=== PATIENT | female | born 1950 | race Hispanic/Latino ===

== ENCOUNTER 2024-04-05 10:46 | Emergency (ER) | payer MEDICARE ==
[~2024-04-05] VITALS: Ht 160 cm; Wt 58.1 kg
[2024-04-05 11:34] LABS: BASOPHILS # (AUTO) 0.03 K/uL (0.00-0.20); BASOPHILS % (AUTO) 0.5 % (0.0-5.0); EOSINOPHILS # (AUTO) 0.21 K/uL (0.00-0.70); EOSINOPHILS % (AUTO) 3.2 % (0.0-8.0); HEMATOCRIT 37.6 % (36-48); IMMATURE GRANULOCYTE ABSOLUTE 0.02 K/uL (0-1); LYMPHOCYTES # (AUTO) 1.7 K/uL (1.0-4.8); LYMPHOCYTES % (AUTO) 26.4 % (21.0-51.0); MEAN CORPUSCULAR HEMOGLOBIN 32.4 pg (27.0-33.0); MEAN CORPUSCULAR HGB CONC 35.6 g/dL (32.0-36.0); MONOCYTES % (AUTO) 15.1 % (3.0-13.0); NEUTROPHILS # (AUTO) 3.6 K/uL (1.8-7.7); NEUTROPHILS % (AUTO) 54.5 % (40.0-77.0); PLATELET COUNT (AUTO) 208 K/uL (130-400); RED BLOOD CELL COUNT(AUTO) 4.13 MIL/uL (4.00-5.50); RED CELL DISTRIBUTION WIDTH 13.9 % (11.0-15.5); WHITE BLOOD COUNT (AUTO) 6.6 K/uL (4.8-10.8)
[2024-04-05 11:43] LABS: CREATININE 1.2 mg/dL (0.5-1.0); POTASSIUM 5.3 mmol/L (3.5-5.1)
[2024-04-05 11:45] LABS: INR 1.02 (0.85-1.15)
[2024-04-05 11:46] LABS: PARTIAL THROMBOPLASTIN TIME 28.3 SEC (26.3-35.5)
[2024-04-05] MEDS: DEXTROSE 50%-WATER 50 ML DISP.SYRIN IV ONE (13:15)
[2024-04-05] MEDS: KAYEXALATE 15GM/60ML PO SCH (13:15)
[2024-04-05] MEDS: LACTULOSE 20 GM/30 ML UDCUP PO ONE (13:15)
[2024-04-05] MEDS: 0.9%NACL 1000ML 1,000 ML IV ONE (13:15)
[2024-04-05] MEDS: INSULIN humuLIN R 100 UNIT/ML 3ML IV ONE (13:16)
[2024-04-05] MEDS: DEXTROSE 50%-WATER 25 GM/50 ML VIAL IV ONE (13:17)
[2024-04-05] MEDS: MAGNESIUM HYDROXIDE 30 ML/UDCUP PO ONE (14:30)
[2024-04-05] MEDS ORDERED: DOCU-116 PO (17:00)
[2024-04-05 17:12] VITALS: BP 121/68; PULSE 64; RESP 18; O2SAT 99
[2024-04-10] MEDS ORDERED: LACT10SO9 PO (12:53)
== END 2024-04-05 17:10 | disposition home or self-care (01) ==
LOC: EDH 10:46
DX: K59.00 Constipation, unspecified (principal); I10 Essential (primary) hypertension; E03.9 Hypothyroidism, unspecified; F31.9 Bipolar disorder, unspecified; Z98.890 Other specified postprocedural states
CPT/HCPCS: 99285; 74176; 96365; 96375; 80048; 85025; 85610; 85730; 83605; 36415; 93005; J1815; J7030; J7070; 96361; 96374

== ENCOUNTER 2024-04-17 19:29 | Emergency (ER) | payer MEDICARE ==
[~2024-04-17] VITALS: Ht 160 cm; Wt 61.2 kg
[~2024-04-17 19:29] MED LIST: DOCU-116 PO; LACT10SO9 PO
[2024-04-17 20:14] VITALS: TEMP 98.2
[2024-04-17 20:16] LABS: BASOPHILS # (AUTO) 0.04 K/uL (0.00-0.20); BASOPHILS % (AUTO) 0.5 % (0.0-5.0); EOSINOPHILS % (AUTO) 2.6 % (0.0-8.0); HEMATOCRIT 38.6 % (36-48); IMMATURE GRANULOCYTE ABSOLUTE 0.02 K/uL (0-1); LYMPHOCYTES # (AUTO) 2.3 K/uL (1.0-4.8); LYMPHOCYTES % (AUTO) 29.6 % (21.0-51.0); MEAN CORPUSCULAR HEMOGLOBIN 32.1 pg (27.0-33.0); MEAN CORPUSCULAR VOLUME 91.7 fL (79-99); MONOCYTES # (AUTO) 1.1 K/uL (0.1-1.0); MONOCYTES % (AUTO) 13.6 % (3.0-13.0); NEUTROPHILS # (AUTO) 4.2 K/uL (1.8-7.7); NEUTROPHILS % (AUTO) 53.4 % (40.0-77.0); PLATELET COUNT (AUTO) 190 K/uL (130-400); RED BLOOD CELL COUNT(AUTO) 4.21 MIL/uL (4.00-5.50); WHITE BLOOD COUNT (AUTO) 7.8 K/uL (4.8-10.8)
[2024-04-17 20:24] LABS: INR 0.97 (0.85-1.15); PROTHROMBIN TIME 10.5 SEC (9.6-11.6)
[2024-04-17 20:25] LABS: PARTIAL THROMBOPLASTIN TIME 28.2 SEC (26.3-35.5)
[2024-04-17 20:31] LABS: CREATININE 1.1 mg/dL (0.5-1.0); POTASSIUM 4.7 mmol/L (3.5-5.1)
[2024-04-17 20:46] LABS: APPEARANCE,URINE CLOUDY (CLEAR); BILIRUBIN,URINE NEGATIVE (NEGATIVE); COLOR,URINE YELLOW (YELLOW); GLUCOSE, URINE (UA) NEGATIVE (NEGATIVE); KETONES,URINE NEGATIVE (NEGATIVE); LEUKOCYTE ESTERASE ,URINE 500 Leu/uL (NEGATIVE); NITRATE,URINE 1+ (NEGATIVE); PH,URINE 6.5 (5.0-8.0); PROTEIN,URINE 20 mg/dL (NEGATIVE); UROBILINOGEN,URINE 0.2 mg/dL (0.2-1.0)
[2024-04-17] MEDS: 0.9%NACL 1000ML 1,000 ML IV ONE (20:47)
[2024-04-17 20:51] LABS: ADD UA MICROSCOPIC YES
[2024-04-17 20:52] LABS: B-TYPE NATRIURETIC PEPTIDE 35 pg/mL (0-100)
[2024-04-17 20:55] LABS: AMPHET/METH SCREEN,URINE NEGATIVE (NEGATIVE); BARBITURATE SCREEN, URINE NEGATIVE (NEGATIVE); BENZODIAZEPINES SCREEN,URINE NEGATIVE (NEGATIVE); CANNABINOID SCREEN,URINE NEGATIVE (NEGATIVE); COCAINE SCREEN,URINE NEGATIVE (NEGATIVE); OPIATE SCREEN,URINE NEGATIVE (NEGATIVE); PHENCYCLIDINE SCREEN,URINE NEGATIVE (NEGATIVE)
[2024-04-17 20:57] LABS: BACTERIA,URINE RARE /HPF (None Seen); SQUAMOUS EPITHELIAL CELL,UR FEW /HPF (0-2); TRANSITIONAL EPI CELLS,URINE FEW /HPF (None Seen); WBC CLUMP FEW /HPF (0-1); WBC,URINE TNTC /HPF (0-1)
[2024-04-17] MEDS: cefTRIAXone 1G VIAL IVPB ONE (23:44)
[2024-04-18 00:41] VITALS: BP 145/66; PULSE 75; RESP 18; O2SAT 98
== END 2024-04-18 01:47 | disposition short-term general hospital (02) ==
LOC: EDH 19:29
DX: N39.0 Urinary tract infection, site not specified (principal); R47.1 Dysarthria and anarthria; E03.9 Hypothyroidism, unspecified; F03.90 Unspecified dementia, unspecified severity, without behavioral disturbance, psychotic disturbance, mood disturbance, and anxiety; I10 Essential (primary) hypertension; F31.9 Bipolar disorder, unspecified; Z79.899 Other long term (current) drug therapy; Z90.710 Acquired absence of both cervix and uterus; Z98.890 Other specified postprocedural states
CPT/HCPCS: 99285; 96365; 96361; 70450; 71045; 82550; 83721; 84484; 80048; 83880; 80305; 85025; 85610; 85730; 87086 ×2; 87186; 36415; 93005; 81001; J7030; J0696

== ENCOUNTER 2025-08-15 18:25 | Emergency (ER) | payer MEDICARE ==
[~2025-08-15] VITALS: Ht 160 cm; Wt 54.4 kg
[~2025-08-15 18:25] MED LIST changes: +ACET-2027 PO; +ASPI-1197 PO; +ATEN50TA PO; +ATOR20TA65 PO; +DIVA-111 PO; -DOCU-116 PO; +DULO60CA64 PO; +GABA300C PO; -LACT10SO9 PO; +LEVO112C5 PO; +MEMA5TAB16 PO; +RISP0.5T61 PO
--- NOTE | 2025-08-15 18:34 | ERN ---
ED Note History of Present Illness Stated Complaint: HEMATURIA, CONSTIPATION, ABDOMINAL PAIN Chief Complaint: Multiple Complaints Time Seen by MD: 18:30 Dictation: IN HIS A 74-YEAR-OLD FEMALE COMING IN TO THE HOSPITAL VIA EMS FROM A LOCAL RESIDENTIAL. SHE IS COMPLAINING OF HAVING HEMATURIA WITH SUPRAPUBIC AND LEFT LOWER QUADRANT PAIN TENDERNESS FOR THE LAST 4-5 DAYS. SHE ALSO STATES SHE HAS HAD NO BOWEL MOVEMENT IN THE SAME AMOUNT OF TIME. SHE HAD DENIES VOMITING, SHE IS NAUSEATED. NO FEVER NO CHILLS. Allergies: Coded Allergies: tetanus toxoid, adsorbed (Unverified Allergy, Unknown, 08/23/24) Home Meds Reported Medications Gabapentin (Neurontin) 300 Mg Capsule, 1 CAP PO DAILY for 30 Days, #90 CAP 0 Refills 03/28/25 Divalproex Sodium (Divalproex Sodium) 250 Mg Tablet.dr, 3 TAB PO BID for 30 Days, #60 TAB 0 Refills 03/28/25 Aspirin (Aspirin) 81 Mg Tab.chew, 1 TAB PO DAILY for 30 Days, #30 TAB 0 Refills 03/28/25 Acetaminophen (Arthritis Pain Reliever) 650 Mg Tablet.er, 650 MG PO DAILYLUNCH, TAB 03/28/25 Memantine HCl (Memantine HCl) 5 Mg Tablet, 5 MG PO HS, TAB 08/23/24 Levothyroxine Sodium (Levothyroxine) 112 Mcg Capsule, 1 CAP PO DAILY for 30 Days, #30 CAP 0 Refills 08/23/24 Duloxetine HCl (Duloxetine HCl) 60 Mg Capsule.dr, 60 MG PO BID, CAP 08/23/24 Atorvastatin Calcium (Atorvastatin Calcium) 20 Mg Tablet, 1 TAB PO HS for 30 Days, #30 TAB 0 Refills 08/23/24 Atenolol (Atenolol) 50 Mg Tablet, 50 MG PO BID, TAB 08/23/24 Risperidone (Risperdal) 0.5 Mg Tablet, 1 TAB PO BID for 30 Days, #60 TAB 0 Refills 08/23/24 Past Medical History Past Medical History: Bipolar, Dementia, Hypertension, Hypothyroid Surgical History: Unknown History: Not Applicable RN Note Reviewed/Agreed w/PFSH: Yes Review of System Dictation CONSTITUTIONAL: NEGATIVE EXCEPT FOR HPI HEAD/FACE: NEGATIVE EXCEPT FOR HPI EENT: NEGATIVE EXCEPT FOR HPI RESPIRATORY: NEGATIVE EXCEPT FOR HPI GASTROINTESTINAL/ABDOMINAL: NEGATIVE EXCEPT FOR HPI LOWER PELVIC AND ABDOMINAL PAIN GENITOURINARY: NEGATIVE EXCEPT FOR HPI HEMATURIA MUSCULOSKELETAL: NEGATIVE EXCEPT FOR HPI INTEGUMENTARY: NEGATIVE EXCEPT FOR HPI NEUROLOGICAL/PSYCH: NEGATIVE EXCEPT FOR HPI HEMATOLOGIC/LYMPHATIC: NEGATIVE EXCEPT FOR HPI ALL SYSTEMS NEGATIVE, EXCEPT NOTED ABOVE. 13 POINT REVIEW OF SYSTEMS ASSESSED AND ALL NEGATIVE EXCEPT FOR ABOVE. Initial Vital Sign VS Vital Signs Date Time Temp Pulse Resp B/P (MAP) Pulse Ox O2 Delivery O2 Flow Rate FiO2 08/15/25 18:27 98.4 72 12 109/75 97 Room Air 0 08/15/25 19:00 21 Physical Exam Dictation VITAL SIGNS REVIEWED GENERAL APPEARANCE: ALERT, ORIENTED X TWO. VERY DEBILITATED. HEAD AND FACE: NON-TRAUMATIC. EYES: PERRL, PINK CONJUNCTIVAS, EYELID NO TRAUMA, ANTERIOR CHAMBER WITH ARCUS SENILIS. EARS: PINNAS INTACT AND NO SIGNS OF TRAUMA OR ERYTHEMA EAR CANALS CLEAR AND NO DISCHARGE TM NO ERYTHEMA NOSE: NO DISCHARGE, NO BLEEDING. OROPHARYNX: MOUTH NORMAL, TONGUE PINK, PHARYNX CLEAR,NO ERYTHEMA, TONSILS NO EXUDATES, NO ABSCESSES NOTED, MUCOUS MEMBRANE MOIST NECK: SUPPLE, NON-TENDER, NO THYROMEGALY, NO MASSES, NO JVD, NO BRUITS BREAST:DEFERRED CHEST:NO TENDERNESS, NO CREPITUS, NO PARADOXICAL MOVEMENT, NO RETRACTIONS LUNGS:CLEAR, WELL-VENTILATED, SYMMETRIC, NO RALES, NO WHEEZING, NO RHONCHI, NO STRIDOR, GOOD BREATH SOUNDS BILATERALLY HEART: REGULAR RATE, REGULAR RHYTHM, NO MURMUR, NO GALLOPS VASCULAR: NO PERIPHERAL EDEMA, ABDOMEN: SOFT, POSITIVE BOWEL SOUNDS, NONDISTENDED, NO GUARDING, MILD SUPRAPUBIC AND LEFT LOWER QUADRANT TENDERNESS PALPATION RECTAL: DEFERRED GENITAL: DEFERRED NEUROLOGICAL: NORMAL SPEECH, MOTOR FUNCTION INTACT, SENSORY FUNCTION INTACT MUSCULOSKELETAL: NECK NONTENDER, FULL RANGE OF MOTION, BACK NONTENDER, FULL RANGE OF MOTION, EXTREMITIES: NONTENDER, FULL RANGE OF MOTION SKIN: COLOR PINK, DRY, NO TURGOR, NO RASH, NO LACERATIONS, NO ABRASIONS, NO CONTUSIONS. LYMPHATIC: DEFERRED Results (Laboratory/Radiology) Laboratory/Radiology Laboratory Tests Test 08/15/25 18:58 08/15/25 19:30 White Blood Count 7.0 K/uL (4.8-10.8) Red Blood Count 3.80 MIL/uL (4.00-5.50) L Hemoglobin 12.5 g/dL (12.0-16.0) Hematocrit 37.0 % (36-48) Mean Corpuscular Volume 97.4 fL (79-99) Mean Corpuscular Hemoglobin 32.9 pg (27.0-33.0) Mean Corpuscular Hemoglobin Concent 33.8 g/dL (32.0-36.0) Red Cell Distribution Width 16.0 % (11.0-15.5) H Platelet Count 229 K/uL (130-400) Mean Platelet Volume 11.9 fL (7.5-10.5) H Immature Granulocyte % (Auto) 0.3 % (0-1) Neutrophils (%) (Auto) 43.1 % (40.0-77.0) Lymphocytes (%) (Auto) 37.8 % (21.0-51.0) Monocytes (%) (Auto) 15.5 % (3.0-13.0) H Eosinophils (%) (Auto) 3.0 % (0.0-8.0) Basophils (%) (Auto) 0.3 % (0.0-5.0) Neutrophils # (Auto) 3.0 K/uL (1.8-7.7) Lymphocytes # (Auto) 2.6 K/uL (1.0-4.8) Monocytes # (Auto) 1.1 K/uL (0.1-1.0) H Eosinophils # (Auto) 0.21 K/uL (0.00-0.70) Basophils # (Auto) 0.02 K/uL (0.00-0.20) Absolute Immature Granulocyte (auto 0.02 K/uL (0-1) Nucleated Red Blood Cells 0.0 % (0.0-0.19) White Cell Morphology Comment See comments Sodium Level 137 mmol/L (136-145) Potassium Level 4.5 mmol/L (3.5-5.1) Chloride Level 103 mmol/L (101-111) Carbon Dioxide Level 26 mmol/L (21-32) Blood Urea Nitrogen 22 mg/dL (7-18) H Creatinine 0.9 mg/dL (0.5-1.0) Glomerular Filtration Rate Calc 66 mL/min (>90) Random Glucose 93 mg/dL (70-105) Total Calcium 9.1 mg/dL (8.5-10.1) Troponin I High Sensitivity 5 ng/L (4-50) Lipase 24 U/L (16-77) Urine Color YELLOW (YELLOW) Urine Appearance CLOUDY (CLEAR) H Urine pH 6.0 (5.0-8.0) Urine Specific [place] 1.017 (1.001-1.031) Urine Protein NEGATIVE mg/dL (NEGATIVE) Urine Glucose (UA) NEGATIVE mg/dL (NEGATIVE) Urine Ketones NEGATIVE mg/dL (NEGATIVE) Urine Occult Blood SMALL (NEGATIVE) H Urine Nitrate NEGATIVE (NEGATIVE) Urine Bilirubin NEGATIVE mg/dL (NEGATIVE) Urine Urobilinogen 0.2 mg/dL (0.2-1.0) Urine Leukocyte Esterase 500 Mj/uL (NEGATIVE) H Urine RBC 11-25 /HPF (0-1) H Urine WBC 51-100 /HPF (0-1) H Urine Squamous Epithelial Cells RARE /HPF (0-2) Urine Other Crystals (Auto) 1 /HPF (None Seen) Urine Bacteria RARE /HPF (None Seen) Urine Yeast RARE /HPF (None Seen) FINDINGS: LUNG BASES: Reticular opacities in both lower lobes with focal bronchiectasis in the left lower lobe. No pleural effusions are seen. Bilateral breast implants in situ incompletely imaged. LIVER: Unremarkable. GALLBLADDER AND BILE DUCTS: The gallbladder appears within normal limits. No radioopaque gallstones are seen. No biliary ductal dilatation is evident. PANCREAS: Unremarkable. SPLEEN: Unremarkable. ADRENAL GLANDS: Unremarkable. KIDNEYS, URETERS, AND BLADDER: The kidneys appear within normal limits. There is no hydronephrosis or hydroureter. No urinary calculi are seen. STOMACH AND BOWEL: Small hiatus hernia. Unremarkable appearance of the stomach and bowel. No evidence of bowel obstruction. No evidence suggesting enteritis or colitis. APPENDIX: No evidence of acute appendicitis on CT examination. PERITONEUM: No free fluid. No free air. LYMPH NODES: No lymphadenopathy is evident. REPRODUCTIVE: The uterus is surgically absent. Unremarkable as visualized otherwise. VASCULATURE: Atheromatous calcifications in the aorta without evidence of aneurysm. BONES: Multilevel mild degenerative changes in the spine. Mild lumbar levoscoliosis. No aggressive appearing osseous lesion. No acute osseous pathology evident. IMPRESSION: No imaging evidence of acute intra-abdominal or pelvic process. Uterus surgically absent. /[facility] Reviewed?: Yes EKG Comment: 1851/EKG SINUS RHYTHM/HEART RATE 67/LEFT ATRIAL ENLARGEMENT/INCOMPLETE RIGHT BUNDLE BRANCH BLOCK ED Course ED Course Orders Procedure Category Date Status Time Cbc With Differential LAB 08/15/25 Complete 18:31 Troponin I High LAB 08/15/25 Complete Sensitivity 18:31 Urinalysis Profile LAB 08/15/25 Complete 18:31 Ct Abdomen/Pelvis CT 08/15/25 Resulted W/Contrast 18:31 12 Lead Ekg Tracing- EKG 08/15/25 Logged Technical 18:31 0.9%Nacl 1000ml (Ns PHA 08/15/25 Complete 1000ml) 19:00 Lipase LAB 08/15/25 Complete 18:31 Basic Metabolic Panel LAB 08/15/25 Complete 18:31 Iohexol (Omnipaque) PHA 08/15/25 Complete 19:39 Culture Urine SREE 08/15/25 In Process 20:15 Amox/Clav 875/125mg PHA 08/15/25 Verified Tab (Augmentin 875-1 21:00 Current Medications Medications (Trade) Dose Ordered Sig/Abdoulaye Route PRN Reason Start Time Stop Time Status Last Admin Dose Admin Iohexol (Omnipaque) 75 ml STK-MED ONCE IV 08/15/25 19:39 08/15/25 19:39 DC Sodium Chloride 1,000 ml @ 0 mls/hr ONCE ONCE IV 08/15/25 19:00 08/15/25 19:01 DC 08/15/25 19:36 Vital Signs Date Time Temp Pulse Resp B/P (MAP) Pulse Ox O2 Delivery O2 Flow Rate FiO2 08/15/25 19:00 98.4 72 14 109/75 97 Room Air* 0 21 08/15/25 18:27 98.4 72 12 109/75 97 Room Air 0 2100/SPOKE TO PATIENT AT LENGTH REGARDING CLINICAL FINDINGS. ONLY SIGNIFICANT FINDINGS ACUTE URINARY TRACT INFECTION. NO PAIN AT THIS TIME. PATIENT GIVEN AUGMENTIN AND TOLD TO SEE HER DOCTOR HEART Score Response (Comments) Value EKG: Repolarization changes 1 Age: > 65yrs (+2) 2 Risk Factors: 1-2 risk factors (+1) 1 Initial Troponin: Normal limit (0) 0 Total 4 Medical Decision Making MDM MDM: DIFFERENTIAL DIAGNOSIS: ACS/AMI/ELECTROLYTE IMBALANCE/DEHYDRATION/UTI/IMAGING RATIONALE: TESTS CONSIDERED AND ORDERED SECONDARY TO SHARED DECISION MAKING INCLUDE: LABS/RADIOLOGY/EKG PREVIOUS OUTSIDE RECORDS REVIEWED: OLD ER VISITS. RISK OF COMPLICATION AND/OR MORBIDITY OR MORTALITY OF PATIENT MANAGEMENT: NONE MEDICATIONS-PER MEDICATION RECONCILIATION NEED FOR HOSPITALIZATION: PATIENT DOES NOT MEET CRITERIA FOR HOSPITALIZATION. NONE NEED FOR EMERGENCY MAJOR/MINOR SURGERY: NO THERE ARE NO SOCIAL CONCERNS WITH THIS PATIENT. AUGMENTIN PRESCRIPTIONS WILL INCLUDE SYMPTOMATIC CARE PATIENT'S PRIOR EXTERNAL MEDICAL RECORDS FROM OTHER ER VISITS WERE REVIEWED BY ME INDICATED. PRIOR TESTING AND RESULTS FROM PREVIOUS VISITS WERE REVIEWED. PRIOR TESTS WERE TAKEN INTO ACCOUNT WITH MEDICAL DECISION MAKING AND RESOURCE UTILIZATION, INDEPENDENT HISTORIAN/HISTORIANS WERE USED TO OBTAIN COMPLETE MEDICAL HISTORY. I INDEPENDENTLY INTERPRETED THE TEST THAT WERE PERFORMED, RESULTS WERE REVIEWED BY ME AND CONSIDERED FINDINGS ON RADIOLOGY IF ORDERED. MEDICAL MANAGEMENT AND EXAMINATION INTERPRETATION DISCUSSIONS WERE HAD BY ME WITH OTHER QUALIFIED HEALTHCARE PROFESSIONALS INDICATED FOR THE PATIENT'S CARE. DX & DISP Disposition: Discharge Departure Impression: Primary Impression: Acute cystitis Additional Impression: Dehydration Condition: Stable Scripts Amoxicillin/Potassium Clav (Amox Tr-K Clv 875-125 mg Tab) 875 Mg-125 Mg Tablet 1 EACH PO BID for 5 Days, #10 TAB 0 Refills Prov: CATHY LOZADA 08/15/25 Additional Instructions: FOLLOW-UP WITH PRIMARY CARE PROVIDER IN 1 TO 2 DAYS. TAKE MEDICATIONS DIRECTED HERE IN THE EMERGENCY ROOM. OKAY TO CONTINUE HOME MEDICATIONS UNLESS OTHERWISE DISCUSSED DURING YOUR VISIT IN THE EMERGENCY ROOM TODAY. RETURN TO YOUR NEAREST EMERGENCY ROOM IF SYMPTOMS WORSEN OR IF THERE IS NO IMPROVEMENT. CALL 911 IF YOU NEED IMMEDIATE ASSISTANCE. TAKE TYLENOL OR MOTRIN [id number] NEEDED AND IF NO CONTRAINDICATIONS ARE PRESENT. INCREASE ORAL HYDRATION. A WOUND CULTURE OR URINE CULTURE WAS ORDERED HERE IN THE EMERGENCY ROOM DEPARTMENT PLEASE FOLLOW-UP WITH PRIMARY CARE PROVIDER AND ADVISE THEM TO GET REPEAT PORTS FROM OUR FACILITY. IF YOU HAD ANY SHA WRAP/SPLINTS THAT WERE APPLIED HERE, PLEASE DO NOT REMOVE THEM UNTIL YOU SEE YOUR PRIMARY CARE OR SPECIALTY. TAKE ANTIBIOTICS DIRECTED UNTIL GONE. INCREASE YOUR WATER INTAKE. SEE YOUR PRIMARY CARE DOCTOR IN THE NEXT 1-2 DAYS FOR FOLLOW UP AND MANAGEMENT Referrals: POLY BEAULIEU (PCP) Time of Disposition: 21:03 I have reviewed the case, and I agree with, Diagnosis and Plan CATHY LOZADA Aug 15, 2025 18:33
--- NOTE | 2025-08-15 18:54 | NUR ---
PENDING LABS AND CONSENT
[2025-08-15 19:17] LABS: IMMATURE GRANULOCYTE ABSOLUTE 0.02 K/uL (0-1); NUCLEATED RED BLOOD CELLS 0.0 % (0.0-0.19); PLATELET COUNT (AUTO) 229 K/uL (130-400); RED BLOOD CELL COUNT(AUTO) 3.80 MIL/uL (4.00-5.50); RED CELL DISTRIBUTION WIDTH 16.0 % (11.0-15.5); WHITE BLOOD COUNT (AUTO) 7.0 K/uL (4.8-10.8)
[2025-08-15 19:28] LABS: CREATININE 0.9 mg/dL (0.5-1.0); GLOMERULAR FILTR. RATE CALC 66.0 mL/min (>90); GLUCOSE,RANDOM 93.0 mg/dL (70-105); SODIUM SERUM 137.0 mmol/L (136-145); UREA NITROGEN, BLOOD 22.0 mg/dL (7-18)
[2025-08-15] MEDS: 0.9%NACL 1000ML 1,000 ML IV ONE (19:36)
[2025-08-15] MEDS ORDERED: IOHEXOL-350 75 ML VIAL IV ONE (19:39)
[2025-08-15 20:10] LABS: APPEARANCE,URINE CLOUDY (CLEAR); GLUCOSE, URINE (UA) NEGATIVE (NEGATIVE); LEUKOCYTE ESTERASE ,URINE 500 Leu/uL (NEGATIVE); NITRATE,URINE NEGATIVE (NEGATIVE); OCCULT BLOOD,URINE SMALL (NEGATIVE)
[2025-08-15 20:11] LABS: ADD UA MICROSCOPIC YES
[2025-08-15 20:17] LABS: SQUAMOUS EPITHELIAL CELL,UR RARE /HPF (0-2); UNCLASSIFIED CRYSTAL 1 /HPF (None Seen); YEAST,URINE BUDDING RARE /HPF (None Seen)
--- NOTE | 2025-08-15 20:44 | HMCIMG ---
EXAM: CT Abdomen and Pelvis with IV contrast CLINICAL HISTORY: Left lower quadrant pain and tenderness. TECHNIQUE: Axial computed tomography images of the abdomen and pelvis with intravenous contrast. COMPARISON: None provided. FINDINGS: LUNG BASES: Reticular opacities in both lower lobes with focal bronchiectasis in the left lower lobe. No pleural effusions are seen. Bilateral breast implants in situ incompletely imaged. LIVER: Unremarkable. GALLBLADDER AND BILE DUCTS: The gallbladder appears within normal limits. No radioopaque gallstones are seen. No biliary ductal dilatation is evident. PANCREAS: Unremarkable. SPLEEN: Unremarkable. ADRENAL GLANDS: Unremarkable. KIDNEYS, URETERS, AND BLADDER: The kidneys appear within normal limits. There is no hydronephrosis or hydroureter. No urinary calculi are seen. STOMACH AND BOWEL: Small hiatus hernia. Unremarkable appearance of the stomach and bowel. No evidence of bowel obstruction. No evidence suggesting enteritis or colitis. APPENDIX: No evidence of acute appendicitis on CT examination. PERITONEUM: No free fluid. No free air. LYMPH NODES: No lymphadenopathy is evident. REPRODUCTIVE: The uterus is surgically absent. Unremarkable as visualized otherwise. VASCULATURE: Atheromatous calcifications in the aorta without evidence of aneurysm. BONES: Multilevel mild degenerative changes in the spine. Mild lumbar levoscoliosis. No aggressive appearing osseous lesion. No acute osseous pathology evident. IMPRESSION: No imaging evidence of acute intra-abdominal or pelvic process. Uterus surgically absent. /[place]
[2025-08-15] MEDS ORDERED: AMOX1TAB16 PO (21:03)
[2025-08-15] MEDS: AMOX/CLAV 875/125MG TAB PO ONE (21:54)
--- NOTE | 2025-08-15 21:54 | NUR ---
CONSTIPATION RESOLVED. THE PATIENT HAS HAD SEVERAL SMALL BOWEL MOVEMENTS DURING TODAY'S VISIT.
--- NOTE | 2025-08-15 22:51 | NUR ---
[facility] CONTACTED FOR TRANSFER TO [facility]
[2025-08-15 23:42] VITALS: BP 112/76; PULSE 74; RESP 16; TEMP 98.4; O2SAT 98
--- NOTE | 2025-08-15 23:43 | NUR ---
[facility] HAS LEFT [facility] [place] ER WITH PATIENT FOR TRANSPORT TO [facility].
--- NOTE | 2025-08-15 23:43 | NUR ---
[facility] AT BEDSIDE FOR TRANSPORT.
--- NOTE | 2025-08-16 07:06 | EKG ---
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
== END 2025-08-15 23:44 | disposition short-term general hospital (02) ==
LOC: EDH 18:25
DX: N30.00 Acute cystitis without hematuria (principal); E86.0 Dehydration; E03.9 Hypothyroidism, unspecified; I10 Essential (primary) hypertension; F31.9 Bipolar disorder, unspecified; F03.90 Unspecified dementia, unspecified severity, without behavioral disturbance, psychotic disturbance, mood disturbance, and anxiety; Z88.7 Allergy status to serum and vaccine; Z79.899 Other long term (current) drug therapy; Z79.890 Hormone replacement therapy; Z79.82 Long term (current) use of aspirin; Z90.710 Acquired absence of both cervix and uterus
CPT/HCPCS: 99285; 74177; 84484; 80048; 83690; 85025; 87086 ×2; 87186; 81001; 36415; 93005; J7030; Q9967